=== PATIENT | female | born 1965 | race Caucasian/White ===

== ENCOUNTER 2020-02-13 09:54 | Emergency (ER) | payer MEDICARE, OTHER, SELFPAY ==
[2020-02-13 10:07] VITALS: BP 141/81; PULSE 70; RESP 16; TEMP 37; O2SAT 99; BMI 30.5
--- NOTE | 2020-02-13 10:11 | ED.GENADULT ---
HPI - General Adult General Chief complaint: Abdominal Pain Stated complaint: PER PHYS REFF Time Seen by Provider: 02/13/20 10:02 Source: patient Mode of arrival: Ambulatory Limitations: no limitations History of Present Illness HPI narrative: Patient is a 54-year-old female here for evaluation of right upper quadrant/right sided abdominal pain. States she has had the symptoms for the past several weeks if not months. Does not know anything that makes it better or worse. No urinary symptoms. No vomiting. No vaginal bleeding. Many years ago had an exploratory laparoscopy but has not had any organs removed. She contacted her primary doctor who thought maybe she had gallstones and told her to come the emergency department. States that she talked the primary doctor several days ago but did not come into the emergency department until today. Related Data Home Medications Medication Instructions Recorded Confirmed fluoxetine 30 mg PO QPM 02/13/20 02/13/20 Allergies Allergy/AdvReac Type Severity Reaction Status Date / Time Sulfa (Sulfonamide Allergy Unknown Verified 02/13/20 10:19 Antibiotics) Review of Systems Constitutional Constitutional: Denies fever(s) Cardiovascular Cardiovascular: Denies chest pain Respiratory Respiratory: Denies cough Gastrointestinal Gastrointestinal: Reports abdominal pain, Denies change in bowel habits, Denies diarrhea and Denies nausea Musculoskeletal Musculoskeletal: Denies arthralgias and Denies myalgias Integumentary/Breasts Skin/Breast: Denies lesions and Denies rash Neurologic Neurologic: Denies behavioral changes Psychiatric Psychiatric: Denies behavioral changes Hematologic/Lymphatic Hematologic/Lymphatic: Denies easy bleeding and Denies easy bruising Patient History Medical History Patient denies medical problems (Acute) Social History lives independently: Yes Smoking Status: Former smoker Exam Initial Vital Signs Initial Vital Signs: Vital Signs Temperature 98.6 F 02/13/20 10:07 Pulse Rate 70 02/13/20 10:07 Respiratory Rate 16 02/13/20 10:07 Blood Pressure 141/81 H 02/13/20 10:07 Pulse Oximetry 99 02/13/20 10:07 Const General: cooperative and comfortable Limitations: mental status not altered Resp Effort & Inspection: normal respiratory effort Cardio Rate: regular rate GI Inspection: non-distended Palpation: soft, No firm and tender (Right upper quadrant) Back/Spine/Pelvis Back: No CVA tenderness Skin Lesions: no lesions Rashes: no rashes Neuro General: patient alert and patient awake Cognition: normal cognition Speech: speech normal Extrem General: normal to inspection and capillary refill normal Psych Appearance: grossly normal and well kempt Course Orders Ordered: ED Orders 02/13/20 10:15 US abdomen limited Stat Urine Microscopic Stat 02/13/20 10:20 Complete Blood Count AUTO DIFF Stat Comprehensive Metabolic Panel Stat Lipase Stat Vital Signs Vital signs: Vital Signs - 8 hr 02/13/20 10:07 Temperature 98.6 F Pulse Rate 70 Respiratory Rate 16 Blood Pressure 141/81 H Pulse Oximetry 99 Medical Decision Making Lab Data Lab results reviewed: Yes I reviewed the patient's lab results. Result diagrams: 02/13/20 10:20 02/13/20 10:20 Labs: Lab Results 02/13/20 02/13/20 02/13/20 Range/Units 10:15 10:20 10:20 WBC 5.5 (4.5-11.0) X10^3/uL RBC 4.42 (4.0-5.2) X10^6/uL Hgb 13.1 (12.0-16.0) g/dL Hct 37.9 (36-46) % MCV 85.8 (80-100) fL MCH 29.7 (26-34) PG MCHC 34.7 (30-36) % RDW 13.0 (11.6-14.8) % Plt Count 327 (150-400) X10^3/uL Neut % (Auto) 53.0 (50-75) % Lymph % (Auto) 35.5 (25-40) % [place] % (Auto) 9.9 (3-14) % Eos % (Auto) 0.9 L (2-4) % Baso % (Auto) 0.7 (0-2) % Neut # (Auto) 2900 (5563-8477) /uL Lymph # (Auto) 2000 (5187-3017) /uL [place] # (Auto) 500 (0-900) /uL Eos # (Auto) 0 (0-450) /uL Baso # (Auto) 0 (0-100) /uL Sodium 137 (137-145) mmol/L Potassium 3.9 (3.4-5.1) mmol/L Chloride 103 (98-107) mmol/L Carbon Dioxide 27 (22-32) mmol/L BUN 19 H (7-17) mg/dL Creatinine 0.66 (0.52-1.04) mg/dL Estimated GFR > 60.0 (>60) mL/min BUN/Creatinine Ratio 28.8 H (6-22) Glucose 94 (70-100) mg/dL Calcium 9.7 (8.4-10.2) mg/dL Total Bilirubin 0.3 (0.2-1.3) mg/dL AST 33 (14-36) IU/L ALT 21 (<35) IU/L Alkaline Phosphatase 95 (38-126) U/L Total Protein 8.3 H (6.3-8.2) g/dL Albumin 4.4 (3.5-5.0) g/dL Globulin 3.9 (1.7-4.1) g/dL Albumin/Globulin Ratio 1.1 (1.0-2.8) Lipase 61 (23-300) U/L Urine RBC 5-10/hpf H (0-5/HPF) Urine WBC 1-5/hpf (0-5/HPF) Ur Squamous Epith Cells 0-1 /hpf (0-5/HPF) Urine Bacteria Few (2-10) H (None) Urine Mucus 1+ H (Negative) Ur Culture Indicated? Cult not indicated Point of Care Testing Test Results Negative Urine Dip Bedside Urine Glucose Negative Bedside Urine Bilirubin - Negative Bedside Urine Ketone - Negative Urine Specific [place] 1.015 Bedside Urine Occult Blood + Bedside Urine pH 7.0 Bedside Urine Protein + 30 Bedside Urine Urobilinogen - Negative Bedside Urine Nitrite - Negative Bedside Urine Leukocytes - Negative Esterase Point of care testing: Point of Care Testing Test Results Negative Urine Dip Bedside Urine Glucose Negative Bedside Urine Bilirubin - Negative Bedside Urine Ketone - Negative Urine Specific [place] 1.015 Bedside Urine Occult Blood + Bedside Urine pH 7.0 Bedside Urine Protein + 30 Bedside Urine Urobilinogen - Negative Bedside Urine Nitrite - Negative Bedside Urine Leukocytes - Negative Esterase Imaging Data US - abdomen: Radiologist's Impression: [address] [address] Ultrasound Report Signed Patient: KAELA SANDOVAL EMR#: [id number] : 1965Acct:[id number] Age/Sex: 54 / FDate of Service: 02/13/20 Loc: ED Accession Number: [id number] Procedure: US abdomen limited Ordering Provider: Manuel Gee D.O. PROCEDURE: US ABDOMEN LIMITED INDICATIONS: PAIN TECHNIQUE: Real-time focused scanning was performed of the abdomen, with image documentation. COMPARISON: None. FINDINGS: Liver demonstrates normal size and echotexture. No gallstones. No gallbladder wall thickening, pericholecystic fluid or sonographic Renee's sign. extrahepatic bile duct is normal in caliber measuring 3.7 mm. Visualized pancreas is normal. IMPRESSION: Normal limited abdominal ultrasound exam. A cause for abdominal pain is not identified on ultrasound. Dictated by: Ernesto Fox M.D. on 02/13/2020 at 10:39 Approved by: Ernesto Fox M.D. on 02/13/2020 at 10:40 MDM Narrative Medical decision making narrative: Patient has a very benign abdominal exam. Her LFTs and rest of her labs are unremarkable. The ultrasound shows no gallbladder pathology. I do have low suspicion for appendicitis. Low suspicion for other acute intra-abdominal surgical pathology. I feel we could hold on a CT scan for now. I feel patient is safe to be discharged home. We did discuss return precautions and follow-up instructions. She expressed understanding and agreement. Discharge Plan Departure Patient Disposition: Home Clinical Impression: Abdominal pain Qualifiers: Abdominal location: unspecified location Qualified Code(s): R10.9 - Unspecified abdominal pain Instructions: DI for Abdominal Pain-Adult Activity Restrictions/Additional Instructions: Recommend that you contact your primary provider for a follow-up to discuss further workup. Return to the emergency department for any new symptoms Prescriptions: No Action fluoxetine 60 mg Tablet 30 mg PO QPM RF: 0
--- NOTE | 2020-02-13 10:15 | DI.US.S_ITS ---
PROCEDURE: US ABDOMEN LIMITED INDICATIONS: PAIN TECHNIQUE: Real-time focused scanning was performed of the abdomen, with image documentation. COMPARISON: None. FINDINGS: Liver demonstrates normal size and echotexture. No gallstones. No gallbladder wall thickening, pericholecystic fluid or sonographic Renee's sign. extrahepatic bile duct is normal in caliber measuring 3.7 mm. Visualized pancreas is normal. IMPRESSION: Normal limited abdominal ultrasound exam. A cause for abdominal pain is not identified on ultrasound. Dictated by: Ernesto Fox M.D. on 02/13/2020 at 10:39 Approved by: Ernesto Fox M.D. on 02/13/2020 at 10:40
[2020-02-13 10:30] LABS: Add Manual Diff / Slide Review NO; Basophils Absolute Auto 0 /uL (0-100); Basophils Percent Auto 0.7 % (0-2); Eosinophils Absolute Auto 0 /uL (0-450); Eosinophils Percent Auto 0.9 % (2-4); Hematocrit 37.9 % (36-46); Hemoglobin 13.1 g/dL (12.0-16.0); Lymphocytes Absolute Auto 2000 /uL (1100-4500); Lymphocytes Percent Auto 35.5 % (25-40); Mean Corpuscular HGB Conc 34.7 % (30-36); Mean Corpuscular Hemoglobin 29.7 PG (26-34); Mean Corpuscular Volume 85.8 fL (80-100); Monocytes Absolute Auto 500 /uL (0-900); Monocytes Percent Auto 9.9 % (3-14); Neutrophils Absolute Auto 2900 /uL (1500-7000); Platelet Count 327 X10^3/uL (150-400); Red Blood Cell Count 4.42 X10^6/uL (4.0-5.2); White Blood Cell Count 5.5 X10^3/uL (4.5-11.0)
[2020-02-13 10:44] LABS: Alanine Aminotransferase 21 IU/L (<35); Alkaline Phosphatase 95 U/L (38-126); Aspartate Aminotransferase 33 IU/L (14-36); BUN Creatinine Ratio 28.8 (6-22); Bilirubin Total 0.3 mg/dL (0.2-1.3); Blood Urea Nitrogen 19 mg/dL (7-17); Calcium 9.7 mg/dL (8.4-10.2); Carbon Dioxide 27 mmol/L (22-32); Chloride 103 mmol/L (98-107); Estimated Glomerular Filt Rate > 60.0 mL/min (>60); Glucose 94 mg/dL (70-100); HEMOLYSIS < 15 (0-50); Lipase 61 U/L (23-300); Potassium 3.9 mmol/L (3.4-5.1); Sodium 137 mmol/L (137-145); Total Protein 8.3 g/dL (6.3-8.2)
[2020-02-13 10:51] LABS: Albumin 4.4 g/dL (3.5-5.0); Albumin Globulin Ratio 1.1 (1.0-2.8); Globulin 3.9 g/dL (1.7-4.1)
[2020-02-13 11:05] LABS: RBC Urine 5-10/HPF (0-5/HPF); Squamous Epithelial Cell Urine 0-1 /HPF (0-5/HPF); WBC Urine 1-5/HPF (0-5/HPF)
[2020-02-13 11:06] LABS: Bacteria Urine Few (2-10); Culture Indicated Urine Cult Not Indicated; Mucus Urine 1+ (Negative)
[2020-02-13 11:53] VITALS: BP 133/80; PULSE 66; RESP 15; O2SAT 100
== END 2020-02-13 11:57 | disposition home or self-care (01) ==
PROVIDERS: Emergency Provider Emergency Medicine
DX: R10.11 Right upper quadrant pain (principal)
CPT/HCPCS: 36415; 76705; 80053; 81003; 81015; 81025; 83690; 85025; 99284

== ENCOUNTER 2023-06-11 11:49 | Emergency (ER) | payer MEDICARE, OTHER, SELFPAY ==
[2023-06-11 11:51] VITALS: BP 142/81; PULSE 70; RESP 20; TEMP 36.7; O2SAT 100; BMI 27.4
--- NOTE | 2023-06-11 11:58 | DI.RAD.S_ITS ---
PROCEDURE: XR ANKLE LT MIN 3V INDICATIONS: trip with obvious ankle deformity TECHNIQUE: 3 views of the ankle were acquired. COMPARISON: None. FINDINGS: Bones: No fractures or dislocations. Ankle mortise is normally aligned. No suspicious bony lesions. Soft tissues: No tibiotalar joint effusion. Achilles tendon appears normal. Extensive soft tissue swelling over the lateral malleolus. IMPRESSION: No acute osseous abnormality. If pain persists with conservative management, consider repeat x-ray in 10-14 days or cross-sectional imaging. Dictated by: Ismael Casey M.D. on 06/11/2023 at 12:54 Approved by: Ismael Casey M.D. on 06/11/2023 at 12:55
[2023-06-11 13:18] VITALS: PULSE 72
--- NOTE | 2023-06-11 13:32 | DI.RAD.S_ITS ---
PROCEDURE: XR TIBIA FUBULA RT 2V INDICATIONS: ankle injury TECHNIQUE: 2 views of the tibia and fibula were acquired. COMPARISON: None. FINDINGS: Bones: No fractures or dislocations. No suspicious bony lesions. Soft tissues: Soft tissue swelling over the lateral malleolus. IMPRESSION: No acute bony abnormality of the right tibia and fibula. Soft tissue swelling over the lateral malleolus consistent with ligamentous injury. Dictated by: Cole Saeed M.D. on 06/11/2023 at 15:42 Approved by: Cole Saeed M.D. on 06/11/2023 at 15:42
--- NOTE | 2023-06-11 13:32 | DI.RAD.S_ITS ---
PROCEDURE: XR FOOT RT MIN 3V INDICATIONS: ankle injury TECHNIQUE: 3 views of the foot were acquired. COMPARISON: [facility], CR, XR ANKLE LT MIN 3V, 06/11/2023, 12:17. FINDINGS: Bones: No fractures or dislocations. No suspicious bony lesions. Soft tissues: No tibiotalar joint effusion. Achilles tendon appears normal. IMPRESSION: No acute bony abnormality of the right foot. Dictated by: Cole Saeed M.D. on 06/11/2023 at 15:41 Approved by: Cole Saeed M.D. on 06/11/2023 at 15:41
--- NOTE | 2023-06-11 13:35 | ED_ITS ---
HPI - Extremity Injury (Lower) <Mason Phillips PA-C - Last Filed: 06/11/23 16:26> General Chief Complaint: Extremity Injury, Lower Stated Complaint: rt ankle injury Time Seen by Provider: 06/11/23 13:17 Source: patient Mode of arrival: Ambulatory History of Present Illness HPI Narrative: 58-year-old female with no reported past medical history presents to the ED status post a ankle injury sustained earlier today. Patient states that she was walking on a sidewalk, took a misstep accidentally, falling and twisting her ankle. Patient denies numbness, tingling, weakness. Patient complains of pain in the right foot ankle and lower leg all the way up to the knee. Patient took 600 mg of ibuprofen right after the injury. Related Data Home Medications Medication Instructions Recorded Confirmed fluoxetine 60 mg tablet 30 mg PO QPM 02/13/20 02/13/20 Allergies Allergy/AdvReac Type Severity Reaction Status Date / Time Sulfa (Sulfonamide Allergy Unknown Verified 06/11/23 11:58 Antibiotics) Review of Systems <Mason Phillips PA-C - Last Filed: 06/11/23 16:26> Review of Systems ROS Unobtainable: All systems reviewed & are unremarkable except as noted in HPI and below Constitutional Constitutional: Denies chills, Denies fatigue, Denies fever(s), Denies frequent falls, Denies lethargy and Denies weakness Eyes Eyes: Denies change in vision, Denies eye discharge, Denies irritation and Denies loss of vision ENT Ears, Nose, Mouth, and Throat: Denies change in voice, Denies dizziness, Denies neck pain, Denies sore throat and Denies throat swelling Cardiovascular Cardiovascular: Denies chest pain, Denies irregular heart rhythm, Denies lightheadedness, Denies palpitations, Denies dyspnea, Denies dyspnea on exertion and Denies orthopnea Respiratory Respiratory: Denies cough, Denies dyspnea, Denies dyspnea on exertion and Denies wheezing Gastrointestinal Gastrointestinal: Denies abdominal pain, Denies change in bowel habits, Denies diarrhea, Denies nausea and Denies vomiting Genitourinary Genitourinary: Denies hematuria, Denies flank pain, Denies urinary incontinence and Denies urinary urgency Musculoskeletal Musculoskeletal: Denies back pain, Denies muscle weakness, Denies neck pain, Denies numbness and Denies tingling Comments: Right lower leg, ankle, foot pain Integumentary/Breasts Skin/Breast: Denies pruritus, Denies erythema, Denies rash and Denies wounds Neurologic Neurologic: Denies behavioral changes, Denies confusion, Denies dizziness, D enies frequent falls, Denies loss of vision, Denies numbness, Denies tingling and Denies weakness Psychiatric Psychiatric: Denies anxiety, Denies behavioral changes, Denies confusion, Denies depression, Denies homicidal ideation and Denies suicidal ideation Endocrine Endocrine: Denies fatigue, Denies flushing and Denies palpitations Hematologic/Lymphatic Hematologic/Lymphatic: Denies easy bruising Allergic/Immunologic Allergic/Immunologic: Denies urticaria, Denies throat swelling and Denies wheezing Patient History <Mason Phillips PA-C - Last Filed: 06/11/23 16:26> Medical History Patient denies medical problems Social History lives independently: Yes Smoking Status: Current every day smoker Smoking Status: Current every day smoker tobacco type: vaping alcohol intake frequency: 0-2 drinks per day Substance Use Type: does not use Exam <Mason Phillips PA-C - Last Filed: 06/11/23 16:26> Narrative Exam Narrative: Const General:?cooperative, healthy appearing and comfortable [facility] Head:?normal to inspection Ears:?hearing grossly normal bilaterally Nose:?external nose normal Face and sinus:?normal facial exam and sinuses nontender Mouth:?oral mucosae normal Throat:?posterior oropharynx normal Eyes General:?appearance normal, both eyes and all related structures Neck Neck:?normal visual inspection and no lymphadenopathy noted Resp Effort & Inspection:?normal respiratory effort Auscultation:?clear to auscultation bilaterally Cardio Rate:?regular rate Rhythm:?regular rhythm Musculoskeletal There is swelling around the lateral right malleolus. There is tenderness to palpation of the base of the 2nd metatarsal and lateral malleolus. There is also tenderness to palpation of the fibular region proximal to the knee. Strength and sensation is intact. Patient unable to walk due to pain. Patient is neurovascularly intact. Neuro General:?patient alert, patient awake and patient oriented x3 Initial Vital Signs Initial Vital Signs: Vital Signs Temperature 98.1 F 06/11/23 11:51 Pulse Rate 70 06/11/23 11:51 Respiratory Rate 20 06/11/23 11:51 Blood Pressure 142/81 H 06/11/23 11:51 Pulse Oximetry 100 06/11/23 11:51 Oxygen Delivery Method Room Air 06/11/23 11:51 <Manuel Gee DO - Last Filed: 06/11/23 17:29> Initial Vital Signs Initial Vital Signs: Vital Signs Temperature 98.1 F 06/11/23 11:51 Pulse Rate 70 06/11/23 11:51 Respiratory Rate 20 06/11/23 11:51 Blood Pressure 142/81 H 06/11/23 11:51 Pulse Oximetry 100 06/11/23 11:51 Oxygen Delivery Method Room Air 06/11/23 11:51 Course <Mason Phillips PA-C - Last Filed: 06/11/23 16:26> Orders Ordered: ED Orders 06/11/23 11:58 XR ankle LT min 3V Stat 06/11/23 13:32 XR foot RT min 3V Stat XR tibia fibula RT 2V Stat Discontinued Medications Acetaminophen (Acetaminophen 325 Mg Tablet) 975 mg PO NOW ONE Stop: 06/11/23 13:35 Last Admin: 06/11/23 13:42 Dose: 975 mg Documented By: SB Vital Signs Vital signs: Vital Signs - 8 hr 06/11/23 11:51 06/11/23 13:18 06/11/23 16:19 Temperature 98.1 F Pulse Rate 70 67 Pulse Rate [Right Dorsalis Pedis] 72 Respiratory Rate 20 18 Blood Pressure 142/81 H 136/91 H Pulse Oximetry 100 99 Oxygen Delivery Method Room Air Room Air <Manuel Gee DO - Last Filed: 06/11/23 17:29> Orders Ordered: ED Orders 06/11/23 11:58 XR ankle LT min 3V Stat 06/11/23 13:32 XR foot RT min 3V Stat XR tibia fibula RT 2V Stat Discontinued Medications Acetaminophen (Acetaminophen 325 Mg Tablet) 975 mg PO NOW ONE Stop: 06/11/23 13:35 Last Admin: 06/11/23 13:42 Dose: 975 mg Documented By: SB Vital Signs Vital signs: Vital Signs - 8 hr 06/11/23 11:51 06/11/23 13:18 06/11/23 16:19 Temperature 98.1 F Pulse Rate 70 67 Pulse Rate [Right Dorsalis Pedis] 72 Respiratory Rate 20 18 Blood Pressure 142/81 H 136/91 H Pulse Oximetry 100 99 Oxygen Delivery Method Room Air Room Air MDM - Extremity Injury (Lower) <Mason Phillips PA-C - Last Filed: 06/11/23 16:26> MDM Narrative Medical decision making narrative: 58-year-old female with no reported past medical history presents to the ED status post a ankle injury sustained earlier today. Concern for fracture/dislocation versus musculoskeletal sprain/strain versus other. Will obtain x-rays, give Tylenol for pain. Will reassess. X-rays without fracture or dislocation. Patient's symptoms likely due to ligamentous injury of the right ankle. Cory wrap applied. Recommend RICE, ibuprofen, Tylenol. Recommend crutches for ambulation if unable to bear weight. ED return precautions discussed with patient. Patient verbalized understanding. Medical records reviewed: Yes Discharge Plan Departure Patient Disposition: Home Clinical Impression: Ankle sprain and strain Instructions: DI for Ankle Sprain Activity Restrictions/Additional Instructions: You were evaluated in the ED today for an ankle injury. Your x-rays did not show any fractures or dislocations. Your symptoms are likely due to a ligamentous sprain/strain of your ankle. You may rest the injury, elevated to above heart level, apply Cory bandage, apply ice for the 1st 24 hours, apply heat packs after the 1st 24 hours. You may take Tylenol, ibuprofen for your symptoms. Please follow-up with your PCP as soon as possible. Return to the ED if you have worsening symptoms, tingling, numbness, weakness. Prescriptions: No Action fluoxetine 60 mg Tablet 30 mg PO QPM Rx Instructions: reports she takes 80 mg at night Stand Alone Forms: Patient Portal/API <Manuel Gee DO - Last Filed: 06/11/23 17:29> Cosign ED Attending Cosignature Attestation: Dr Gee Co-Sign Statement: I was available for consultation during this patient's emergency department visit. This chart is signed by myself for administrative purposes only. I did not have direct contact with this patient during this visit. They were seen independently by the APC.
[2023-06-11] MEDS: ACETAMINOPHEN 325 MG TABLET 975 MG PO (13:42)
[2023-06-11 16:19] VITALS: BP 136/91; PULSE 67; RESP 18; O2SAT 99
== END 2023-06-11 16:18 | disposition home or self-care (01) ==
PROVIDERS: Emergency Provider Student in an Organized Health Care Education/Training Program
DX: S93.401A Sprain of unspecified ligament of right ankle, initial encounter (principal); S96.911A Strain of unspecified muscle and tendon at ankle and foot level, right foot, initial encounter; X50.1XXA Overexertion from prolonged static or awkward postures, initial encounter
CPT/HCPCS: 73590; 73610; 73630; 99283; 99284

== ENCOUNTER → 2023-08-29 12:30 | Outpatient (CLI) | payer OTHER, MEDICARE, SELFPAY ==
--- NOTE | 2023-08-29 | DI.MRI.S_ITS ---
PROCEDURE: MR ANKLE RT WO CON INDICATIONS: Pain in right ankle and joints of right foot TECHNIQUE: Noncontrast sagittal T1 spin echo and T2 fast spin echo with fat saturation, axial proton density fast spin echo and T2 fast spin echo with fat saturation, coronal T1 spin echo and T2 fast spin echo with fat saturation through the ankle/hindfoot. COMPARISON: None. FINDINGS: Image quality: Excellent. Bones and joints: There is mild midfoot and hindfoot joint osteoarthritis. No bone marrow contusions or fractures. No hindfoot coalitions. No osteochondral injuries of the talar dome. Small tibiotalar joint effusion is seen, no gross loose bodies. Medial structures: The posterior tibialis tendon is thickened with moderate amount of fluid distending tendon sheath at the level of mid to distal talus and talonavicular joint. The flexor digitorum longus, and flexor hallucis longus tendons are intact. The posterior tibial neurovascular bundle appears normal within the tarsal tunnel, without extrinsic mass effect. The deltoid ligament and spring ligament are thickened with subtle intrasubstance T2 hyperintense signal. Lateral structures: The anterior talofibular is attenuated with intrasubstance T2 hyperintense signal. The calcaneofibular, and posterior talofibular ligaments appear mildly thickened. More superiorly, the anterior and posterior tibiofibular ligaments appear thickened with subtle intrasubstance T2 hyperintense signal. The tibiofibular syndesmosis is normal in width at 2 mm or less. The peroneus longus and brevis tendons are thickened with small to moderate amount of fluid distending tendon sheath at the level of lateral malleolus tip extending to the level of calcaneocuboid joint. sinus tarsi demonstrates normal fatty signal, without edema, fibrosis, or cyst formation. Visualized sinus tarsi components (cervical ligament, interosseous talocalcaneal ligament, roots of the inferior extensor retinaculum) appear normal. The calcaneonavicular and calcaneocuboid components of the bifurcate ligament appear intact. The dorsal calcaneocuboid ligament appears intact. Anterior structures: The tibialis anterior, extensor hallucis longus, and extensor digitorum longus tendons appear intact. The dorsal talonavicular ligament appears intact. Posterior and plantar structures: Achilles tendon is intact. Medial and lateral bands of the plantar fascia are of normal thickness. No abductor digiti quinti muscle atrophy to suggest Nagel neuropathy. IMPRESSION: 1. Mild midfoot and hindfoot joint osteoarthritis. No fracture or dislocation. No osteochondral injuries of talar dome. Small joint effusion, no loose bodies. 2. Low to moderate grade tenosynovitis involving posterior tibialis tendon at the level of distal talus and talonavicular joint. 3. Low to moderate grade tenosynovitis involving peroneus tendons at the level of lateral malleolus tip extending to the level of calcaneocuboid joint. 4. Low-grade sprain/intrasubstance partial-thickness tear involving medial ankle ligaments. Low to moderate grade sprain/partial-thickness tear involving lateral ankle ligaments most notably involving anterior talofibular ligament. No gross full-thickness ankle ligament rupture. Dictated by: Caleb Granados M.D. on 08/29/2023 at 16:30 Approved by: Caleb Granados M.D. on 08/29/2023 at 17:02
== END ==
PROVIDERS: Referring Provider Nurse Practitioner Primary Care; Visit Provider Nurse Practitioner Primary Care
DX: S93.491A Sprain of other ligament of right ankle, initial encounter (principal); M19.071 Primary osteoarthritis, right ankle and foot; M65.871 Other synovitis and tenosynovitis, right ankle and foot; M25.474 Effusion, right foot; M25.571 Pain in right ankle and joints of right foot
CPT/HCPCS: 73721